=== PATIENT | female | born 1975 | race Hispanic/Latino ===

== ENCOUNTER 2021-04-06 11:27 | Emergency (ER) | payer OTHER ==
[~2021-04-06] VITALS: Ht 160 cm; Wt 98.9 kg
[2021-04-06 11:58] VITALS: BP 141/101
[2021-04-06 12:03] LABS: EOSINOPHILS % (AUTO) 2.3 % (0.0-8.0); HEMATOCRIT 37.3 % (36-48); LYMPHOCYTES % (AUTO) 30.7 % (21.0-51.0); MEAN CORPUSCULAR HEMOGLOBIN 29.3 pg (27.0-33.0); MEAN CORPUSCULAR HGB CONC 32.2 g/dL (32.0-36.0); MEAN CORPUSCULAR VOLUME 91.2 fL (79-99); MONOCYTES % (AUTO) 7.9 % (3.0-13.0); NEUTROPHILS % (AUTO) 57.9 % (40.0-77.0); PLATELET COUNT (AUTO) 341 K/uL (130-400); RED BLOOD CELL COUNT(AUTO) 4.09 MIL/uL (4.00-5.50); RED CELL DISTRIBUTION WIDTH 14.3 % (11.0-15.5)
[2021-04-06] MEDS ORDERED: ESTROGENS,CONJUGATED 25 MG/VIAL IV SCH (14:00)
[2021-04-06] MEDS ORDERED: TRAN650T5 PO (14:08)
[2021-04-06] MEDS ORDERED: MEDR5TAB PO (14:08)
== END 2021-04-06 14:43 | disposition home or self-care (01) ==
LOC: EDH 11:27
DX: N93.8 Other specified abnormal uterine and vaginal bleeding (principal); E78.00 Pure hypercholesterolemia, unspecified; I10 Essential (primary) hypertension; Z88.0 Allergy status to penicillin; Z88.8 Allergy status to other drugs, medicaments and biological substances
CPT/HCPCS: 36415; 84703; 85025; 86850; 86900; 86901; 96374; 99283; J1410